=== PATIENT | male | born 1950 | race Caucasian/White ===

== ENCOUNTER 2016-12-03 06:46 | Emergency (ER) | payer OTHER ==
[~2016-12-03] VITALS: Ht 177.8 cm; Wt 72.6 kg
[~2016-12-03 06:46] MED LIST: ADULT LOW DOSE81 M1 PO; ASCORBIC ACID500 M3 PO; ASPIR 8181 M1 PO; Ecotrin PO; LIPITOR40 MG PO; LOPRESSOR25 MG PO; Lopressor PO; NOHOMEMEDS; OCEAN NASAL 0.645 ML BOTH NARES; PLAVIX75 MG PO; PREVACID30 MG PO
[2016-12-03] MEDS ORDERED: OMEPRAZOLE40 M1 PO (06:56)
[2016-12-03] MEDS ORDERED: LOPRESSOR50 MG PO (06:56)
[2016-12-03 08:13] LABS: HEMATOCRIT 42.1 % (38.0-50.0); MCH 28.9 PG (29.0-34.0); MCHC 34.7 G/DL (30.0-36.0); MCV 83.2 FL (86-99); MEAN PLAT.VOLUME 9.7 uM^3 (9.0-12.4); PLATELET COUNT 200 K/uL (156-360); RBC DIS.WIDTH-CV 12.9 % (11.8-14.6); RBC DIS.WIDTH-SD 38.7 % (39-53); RED BLOOD COUNT 5.06 M/uL (4.00-5.50); WHITE BLOOD COUNT 6.5 K/uL (4.1-10.2)
[2016-12-03 08:25] LABS: CHLORIDE 106 mEq/L (99-109)
[2016-12-03 08:26] LABS: SODIUM 140 mEq/L (136-147)
[2016-12-03 08:27] LABS: GLUCOSE 96 mg/dL (70-99)
[2016-12-03 08:29] LABS: ANION GAP 9 MEQ/L (2-14)
[2016-12-03 08:31] LABS: GFR ESTIMATE (CALCULATED) > 59 mL/min/
[2016-12-03 08:32] LABS: TROP-I INTERPRETATION NEGATIVE; TROPONIN-I < 0.01 ng/mL (0.0-0.30); UREA NITROGEN (BUN) 13 mg/dL (9-23)
[2016-12-03] MEDS ORDERED: ULTRAM50 MG PO (08:53)
[2016-12-03 09:02] VITALS: BP 168/82
== END 2016-12-03 09:02 | disposition home or self-care (01) ==
LOC: EME 06:46
PROVIDERS: Physician Assistant Medical
DX: M79.601 Pain in right arm (principal); I10 Essential (primary) hypertension; E78.5 Hyperlipidemia, unspecified; I25.10 Atherosclerotic heart disease of native coronary artery without angina pectoris; Z98.61 Coronary angioplasty status
CPT/HCPCS: 80048; 84484; 85027; 93005; 99281; 99284

== ENCOUNTER 2016-12-31 10:49 | Emergency (ER) | payer OTHER ==
[~2016-12-31] VITALS: Ht 177.8 cm; Wt 72.3 kg
[~2016-12-31 10:49] MED LIST changes: +LOPRESSOR50 MG PO; +OMEPRAZOLE40 M1 PO; +ULTRAM50 MG PO
[2016-12-31 11:54] LABS: MCH 27.8 PG (29.0-34.0); MCHC 32.9 G/DL (30.0-36.0); MCV 84.5 FL (86-99); MEAN PLAT.VOLUME 9.9 uM^3 (9.0-12.4); RBC DIS.WIDTH-CV 12.8 % (11.8-14.6); RBC DIS.WIDTH-SD 39.4 % (39-53); RED BLOOD COUNT 5.68 M/uL (4.00-5.50); WHITE BLOOD COUNT 7.7 K/uL (4.1-10.2)
[2016-12-31 11:59] LABS: PLATELET COUNT 320 K/uL (156-360)
[2016-12-31 12:07] LABS: CHLORIDE 99 mEq/L (99-109); SODIUM 136 mEq/L (136-147)
[2016-12-31 12:09] LABS: GLUCOSE 95 mg/dL (70-99)
[2016-12-31 12:11] LABS: ANION GAP 11 MEQ/L (2-14)
[2016-12-31 12:13] LABS: GFR ESTIMATE (CALCULATED) > 59 mL/min/
[2016-12-31 12:14] LABS: TROP-I INTERPRETATION NEGATIVE; TROPONIN-I < 0.01 ng/mL (0.0-0.30); UREA NITROGEN (BUN) 20 mg/dL (9-23)
[2016-12-31 13:43] LABS: TROP-I INTERPRETATION NEGATIVE; TROPONIN-I < 0.01 ng/mL (0.0-0.30)
[2016-12-31 14:48] VITALS: BP 141/72
== END 2016-12-31 14:49 | disposition home or self-care (01) ==
LOC: EME 10:49
PROVIDERS: Emergency Medicine
DX: R07.89 Other chest pain (principal); I10 Essential (primary) hypertension; Z79.82 Long term (current) use of aspirin; Z95.5 Presence of coronary angioplasty implant and graft
CPT/HCPCS: 71020; 80048; 84484; 85027; 93005; 99281; 99284

== ENCOUNTER → 2017-06-04 | Outpatient (CLI) | payer OTHER ==
[~2017-06-04] VITALS: Ht 177.8 cm; Wt 70.2 kg
[~2017-06-04] MED LIST changes: +ALLERGY4 MG PO; +FISH OIL 1,0001 EAC7 PO; +HYDROCHLOROTHIA25 MG PO; +KLOR-CON M2020 MEQ PO; +MEN'S MULTI-VI1 EACH PO; +PROBIOTIC1 EAC2 PO
[2017-06-04 12:14] LABS: CHLORIDE 104 mEq/L (99-109); POTASSIUM 3.4 mEq/L (3.7-5.4); SODIUM 139 mEq/L (136-147)
[2017-06-04 12:16] LABS: GLUCOSE 92 mg/dL (70-99)
[2017-06-04 12:18] LABS: ANION GAP 14 MEQ/L (2-14)
[2017-06-04 12:20] LABS: GFR ESTIMATE (CALCULATED) > 59 mL/min/
[2017-06-04 12:21] LABS: UREA NITROGEN (BUN) 15 mg/dL (9-23)
== END | disposition home or self-care (01) ==
LOC: AMB 11:26
PROVIDERS: Anesthesiology
PROC: 0DJD8ZZ Inspection of Lower Intestinal Tract, Via Natural or Artificial Opening Endoscopic (ICD-10-PCS; principal; 2017-06-04)
PROC: 0DB48ZX Excision of Esophagogastric Junction, Via Natural or Artificial Opening Endoscopic, Diagnostic (ICD-10-PCS; principal; 2017-06-04)
DX: Z12.11 Encounter for screening for malignant neoplasm of colon (principal); K22.70 Barrett's esophagus without dysplasia; Z86.010 Personal history of colon polyps; R14.0 Abdominal distension (gaseous); K21.9 Gastro-esophageal reflux disease without esophagitis; Z87.11 Personal history of peptic ulcer disease; I10 Essential (primary) hypertension; Z87.19 Personal history of other diseases of the digestive system; Z80.0 Family history of malignant neoplasm of digestive organs; I25.10 Atherosclerotic heart disease of native coronary artery without angina pectoris; Z95.5 Presence of coronary angioplasty implant and graft; Z87.891 Personal history of nicotine dependence; Z79.82 Long term (current) use of aspirin; Z88.2 Allergy status to sulfonamides; Z88.8 Allergy status to other drugs, medicaments and biological substances
CPT/HCPCS: 80048; 88305; J2250